=== PATIENT | female | born 1970 | race Caucasian/White ===

== ENCOUNTER 2021-06-30 08:16 | Emergency (ER) | payer OTHER ==
[~2021-06-30 08:16] MED LIST: ALLERGY RELIEF10 M1 PO; BUSPAR5 MG PO; COLACE100 MG PO; CYMBALTA 30MG C30 MG PO; DULOXETINE HCL20 MG PO; EXCEDRIN EXTRA1 EACH PO; FOLIC ACID1 MG PO; GAS RELIEF125 M1 PO; HYDROCODON-ACE1 EAC2 PO; HYZAAR 50-12.51 EACH PO; LEVOTHYROXINE200 MC1 PO; LIPITOR40 M1 PO; LOSARTAN-HCTZ1 EAC2 PO; MAGNESIUM PO; METFORMIN HCL500 MG PO; NAPROSYN250 MG PO; NASACORT16.9 ML; PERCOCET 10/321 EACH PO; PRILOSEC20 MG PO; STEGLATRO5 MG PO; SYNTHROID100 MCG PO; SYNTHROID25 MCG PO; SYNTHROID75 MCG PO; TIZANIDINE HCL4 MG PO; VENTOLIN HFA IN18 GM INH; VITAMIN B-121000 MC1 PO; VITAMIN D310 MCG PO; [UNRECOGNIZED DRUG - OTHER] PO; [UNRECOGNIZED DRUG - SUPPLY] PO
[2021-06-30 08:58] LABS: BILIRUBIN NEGATIVE (NEGATIVE); BLOOD 3+ Ery/uL (NEGATIVE); COLOR RED (YELLOW); GLUCOSE (U) TRACE mg/dL (NORMAL); LEUKOCYTES TRACE Leu/uL (NEGATIVE); NITRITE NEGATIVE (NEGATIVE); PROTEIN NEGATIVE (NEGATIVE); UROBILINOGEN 0.2 mg/dL (0.2-1.0)
[2021-06-30 09:00] LABS: CLARITY CLOUDY (CLEAR)
[2021-06-30 09:05] LABS: BACTERIA TRACE; URINARY RBC TNTC; URINARY WBC RARE
[2021-06-30] MEDS ORDERED: NORCO 5-325 TA1 EACH PO (10:29)
== END 2021-06-30 10:59 | disposition home or self-care (01) ==
LOC: FER 08:16
PROVIDERS: Emergency Medicine
DX: N13.2 Hydronephrosis with renal and ureteral calculous obstruction (principal); I10 Essential (primary) hypertension; F17.210 Nicotine dependence, cigarettes, uncomplicated
CPT/HCPCS: 81001; 87088; J1170; J2405; J7030